=== PATIENT | female | born 1965 | race Caucasian/White ===

== ENCOUNTER 2023-07-14 06:07 | Day surgery (SDC) | payer BC, OTHER ==
[~2023-07-14] VITALS: Ht 170.2 cm; Wt 102.4 kg
[2023-07-14] VITALS (8 sets, daily range): BP systolic 126–158; BP diastolic 40–89; PULSE 57–63; RESP 16–18; TEMP 97.9; O2SAT 93–96
[2023-07-14] MEDS ORDERED: cefazolin 2gm/D5W 100mL 100 ML IV ONE (06:25)
[2023-07-14] MEDS ORDERED: EMPA25TA PO (06:54)
[2023-07-14] MEDS ORDERED: VALS80TA32 PO (06:54)
[2023-07-14] MEDS ORDERED: ATOR20TA66 PO (06:54)
[2023-07-14] MEDS ORDERED: CETI10CA PO (06:54)
[2023-07-14] MEDS ORDERED: APIX5TAB3 PO (06:54)
[2023-07-14] MEDS ORDERED: ESTR1PAT96 TD (06:54)
[2023-07-14] MEDS ORDERED: TIRZ7.5P (06:54)
[2023-07-14] MEDS ORDERED: METO-411 PO (06:54)
[2023-07-14] MEDS ORDERED: fentaNYL/PF 50MCG/1 ML 2ML syringe ONE ×2 (07:28→08:21)
[2023-07-14] MEDS ORDERED: midazolam 1 mg/ML 2ml injection ONE ×3 (07:28→08:19)
[2023-07-14] MEDS ORDERED: vancomycin 1,000mg inj ONE (07:29)
[2023-07-14] MEDS ORDERED: LIDOCAINE 2%/EPI 1:100,000 inj. Multi-dose 20 ML VIAL ONE (07:29)
[2023-07-14] MEDS: normal saline 1000ml 1,000 ML IV SCH (07:30)
[2023-07-14 07:53] LABS: BASOPHILS % (AUTO) 0.3 % (0-1); EOSINOPHILS # (AUTO) 0.1 X10'3 (0-0.9); EOSINOPHILS % (AUTO) 1.9 % (0-6); HEMATOCRIT 41.2 % (35.0-45.0); HEMOGLOBIN 14.1 g/dl (12.0-16.0); LYMPHOCYTES # (AUTO) 1.4 X10'3 (1.1-4.8); LYMPHOCYTES % (AUTO) 25.1 % (21-51); MEAN CORPUSCULAR HEMOGLOBIN 28.3 PG (27.0-31.0); MEAN CORPUSCULAR HGB CONC 34.2 g/dL (33.0-36.5); MEAN CORPUSCULAR VOLUME 82.6 FL (78-98); MEAN PLATELET VOLUME 8.8 FL (7.4-10.4); MONOCYTES # (AUTO) 0.4 X10'3 (0-0.9); MONOCYTES % (AUTO) 6.4 % (2-12); NEUTROPHILS # (AUTO) 3.7 X10'3 (1.8-7.7); NEUTROPHILS % (AUTO) 66.3 % (42-75); PLATELET COUNT 155 X10'3 (140-440); RED BLOOD COUNT 4.99 X10'6 (4.20-5.60); RED CELL DISTRIBUTION WIDTH 15.2 % (11.5-14.5); WHITE BLOOD COUNT 5.6 X10'3 (4.5-11.0)
[2023-07-14] MEDS: VANCOMYCIN 1,500MG in normal saline IV soln 300 ML IV ONE (08:00)
[2023-07-14 08:04] LABS: INR 1.1 INR
[2023-07-14] MEDS ORDERED: ondansetron/PF 4mg/2ml inj ONE (08:06)
[2023-07-14 08:08] LABS: ALBUMIN 3.8 G/DL (3.4-5.0); ANION GAP 5 (8-16); BLOOD UREA NITROGEN 17 MG/DL (7-18); BUN/CREATININE RATIO 24.3 (10.0-20.0); CALCIUM 9.1 MG/DL (8.5-10.1); CHLORIDE 107 MMOL/L (99-107); GLUCOSE 113 MG/DL (70-104); MAGNESIUM 2.2 MG/DL (1.5-2.4); POTASSIUM 3.7 MMOL/L (3.5-5.1); SODIUM 141 MMOL/L (135-145); TOTAL CARBON DIOXIDE 28.7 MMOL/L (24-32); eCRCL 86 ML/MIN; eGFR 86 ML/MIN
[2023-07-14] MEDS ORDERED: normal saline 1000ml 1,000 ML IV SCH (09:40)
[2023-07-14] MEDS ORDERED: HYDROcodone/acetaminophen 5mg/325mg tablet PO PRN (09:40)
[2023-07-14] MEDS ORDERED: HYDROcodone/acetaminophen 10/325mg tab PO PRN (09:40)
== END 2023-07-14 10:50 | disposition home or self-care (01) ==
LOC: SSTAY O 06:07
PROVIDERS: ATTEND Internal Medicine Cardiovascular Disease
DX: Z45.010 Encounter for checking and testing of cardiac pacemaker pulse generator [battery] (principal); I10 Essential (primary) hypertension; I49.5 Sick sinus syndrome; E11.9 Type 2 diabetes mellitus without complications; Z79.01 Long term (current) use of anticoagulants; Z79.899 Other long term (current) drug therapy; Z90.710 Acquired absence of both cervix and uterus; Z90.49 Acquired absence of other specified parts of digestive tract; Z98.890 Other specified postprocedural states
CPT/HCPCS: 33228; 36415; 80048; 82948; 83735; 85025; 85610; 93005; 99152; 99153; C1785; J2250; J2405; J3010; J3370; J7030; J7040